=== PATIENT | female | born 1990 | race Two or more races ===

== ENCOUNTER → 2019-11-20 | Outpatient (CLI) | payer OTHER ==
--- NOTE | 2019-11-20 12:18 | RADIOLOGY REPORT (SQ) ---
EXAM DESCRIPTION: NM HIDA SCAN WITH CCK IMAGES COMPLETED DATE/TIME: 11/20/2019 10:31 am REASON FOR STUDY: K29.50 UNSPECIFIED CHRONIC GASTRITIS WITHOUT BLEEDING K29.50 UNSPECIFIED CHRONIC GASTRITIS WITHOUT BLEEDING COMPARISON: None. RADIONUCLIDE AND DOSE: DOSAGE RADIONUCLIDE: 5 millicuries Tc99m Mebrofenin. DOSAGE CCK: 2 micrograms. DOSAGE MORPHINE: Not required. The route of agent administration: Intravenous TECHNIQUE: Serial imaging right upper quadrant up to 60 minutes following injection of radionuclide. CCK injected after gallbladder visualized. LIMITATIONS: None. FINDINGS: LIVER: Normal visualization without areas of photopenia. INTRAHEPATIC BILE DUCTS: Normal size and no delay in visualization. COMMON BILE DUCT: Normal without dilatation. GALLBLADDER: Normal visualization. Calculated ejection fraction of 18%. Normal range is greater th an 35%. PHYSICAL RESPONSE: Patients presenting complaint was reproduced. OTHER: No other significant finding. IMPRESSION: Abnormal gallbladder ejection fraction of 18%. Patient's symptoms were reproduced with CCK administration. TECHNICAL DOCUMENTATION: JOB ID: [id number] 2010 [employer]- All Rights Reserved Reading location - IP/workstation name: [email or web address]
== END ==
LOC: RAD 07:21
PROVIDERS: ATTEND Internal Medicine Gastroenterology
DX: K29.50 Unspecified chronic gastritis without bleeding (principal)
CPT/HCPCS: 81025; 78227; J2805; A9537; Q9969

== ENCOUNTER 2019-11-23 08:21 | Emergency (ER) | payer OTHER ==
[2019-11-23 09:22] LABS: ABSOLUTE EOSINOPHILS # (AUTO) 0.1 10^3/uL (0.0-0.6); ABSOLUTE LYMPHOCYTES (AUTO) 2.4 10^3/uL (0.5-4.7); ABSOLUTE MONOCYTES (AUTO) 0.4 10^3/uL (0.1-1.4); ABSOLUTE NEUT (AUTO) 3.6 10^3/uL (1.7-8.2); BASOPHILS % (AUTO) 0.5 % (0-2); EOSINOPHILS % (AUTO) 0.8 % (0-6); HEMATOCRIT 41.2 % (36.0-47.0); LYMPHOCYTES % (AUTO) 36.3 % (13-45); MEAN CORPUSCULAR HEMOGLOBIN 28.6 pg (27.0-33.4); MEAN CORPUSCULAR VOLUME 84 fl (80-97); MONOCYTES % (AUTO) 6.9 % (3-13); PLATELET COUNT 209 10^3/uL (150-450); RED BLOOD COUNT 4.91 10^6/uL (3.72-5.28); RED CELL DISTRIBUTION WIDTH 13.7 % (11.5-14.0); SEGMENTED NEUTROPHILS % (AUTO) 55.5 % (42-78); TOTAL CELLS COUNTED % (AUTO) 100 %; WHITE BLOOD COUNT 6.5 10^3/uL (4.0-10.5)
[2019-11-23 09:27] LABS: APPEARANCE,URINE SLIGHTLY-CLOUDY; BILIRUBIN,URINE NEGATIVE (NEGATIVE); COLOR,URINE STRAW; GLUCOSE, URINE NEGATIVE (NEGATIVE); KETONES,URINE NEGATIVE (NEGATIVE); LEUKOCYTE ESTERASE,URINE LARGE (NEGATIVE); NITRITE,URINE NEGATIVE (NEGATIVE); PROTEIN,URINE NEGATIVE (NEGATIVE); URINE SPECIFIC GRAVITY 1.001; UROBILINOGEN,URINE NEGATIVE mg/dL (<2.0)
[2019-11-23 09:42] LABS: ALBUMIN 4.8 g/dL (3.5-5.0); ALKALINE PHOSPHATASE 73 U/L (38-126); ANION GAP 10 (5-19); ASPARTATE AMINO TRANSFERASE 20 U/L (14-36); BILIRUBIN,DIRECT 0.3 mg/dL (0.0-0.4); BILIRUBIN,TOTAL 0.5 mg/dL (0.2-1.3); BLOOD UREA NITROGEN 10 mg/dL (7-20); CALCIUM 9.6 mg/dL (8.4-10.2); CARBON DIOXIDE 29 mmol/L (22-30); CHLORIDE 103 mmol/L (98-107); GLUCOSE 112 mg/dL (75-110); POTASSIUM 3.7 mmol/L (3.6-5.0); TOTAL PROTEIN 7.9 g/dL (6.3-8.2)
[2019-11-23] MEDS ORDERED: NORMAL SALINE 1000 ML 1,000 ML IV ONE (13:19)
[2019-11-23] MEDS ORDERED: ONDANSETRON HCL INJ/PF 4 MG/2 ML SDV IV ONE (13:19)
[2019-11-23] MEDS ORDERED: MORPHINE SULFATE 10 MG/ML INJ IV ONE (13:19)
--- NOTE | 2019-11-23 14:57 | RADIOLOGY REPORT (SQ) ---
EXAM DESCRIPTION: CT ABD/PELVIS WITH IV ONLY IMAGES COMPLETED DATE/TIME: 11/23/2019 2:22 pm REASON FOR STUDY: right flank pain/urinary frequency/burning/hematuria COMPARISON: None. TECHNIQUE: CT scan of the abdomen and pelvis performed using helical scanning technique with dynamic intravenous contrast injection. No oral contrast. Images reviewed with lung, soft tissue, and bone windows. Reconstructed coronal and sagittal MPR images reviewed. Delayed images for evaluation of the urinary system also acquired. All images stored on PACS. All CT scanners at this facility use dose modulation, iterative reconstruction, and/or weight based d osing when appropriate to reduce radiation dose to as low as reasonably achievable (ALARA). [facility]: Dose Right [facility]: CareDose [facility]: Dose Right [facility]: Teradose 4D [facility]: TapTap CONTRAST TYPE AND DOSE: contrast/concentration: Isovue 350.00 mmol/ml; Total Contrast Delivered: 100 .0 ml; Total Saline Delivered: 71.9 ml RENAL FUNCTION: BUN 10 creatinine 0.65 RADIATION DOSE: CT Rad equipment meets quality standard of care and radiation dose reduction techniq ues were employed. CTDIvol: 15.0 - 19.4 mGy. DLP: 2106 mGy-cm.. LIMITATIONS: None. FINDINGS: LOWER CHEST: No significant findings. No nodules or infiltrates. LIVER: Normal size. No masses. No dilated ducts. SPLEEN: Normal size. No focal lesions. PANCREAS: No masses. No significant calcifications. No adjacent inflammation or peripancreatic fluid collections. Pancreatic duct not dilated. GALLBLADDER: No identified stones by CT criteria. No inflammatory changes to suggest cholecystitis. ADRENAL GLANDS: No significant masses or asymmetry. RIGHT KIDNEY AND URETER: No solid masses. No significant calcifications. No hydronephrosis or hyd roureter. LEFT KIDNEY AND URETER: No solid masses. No significant calcifications. No hydronephrosis or hydr oureter. AORTA AND VESSELS: No aneurysm. No dissection. Renal arteries, SMA, celiac without stenosis. RETROPERITONEUM: No retroperitoneal adenopathy, hemorrhage or masses. BOWEL AND PERITONEAL CAVITY: No masses or inflammatory changes. No free fluid or peritoneal masses. APPENDIX: Surgically absent. PELVIS: There is a 27 mm fat density lesion in the left adnexa. There is an associated calcification . ABDOMINAL WALL: No masses. No hernias. BONES: No significant or acute findings. OTHER: No other significant finding. IMPRESSION: 1. There is mild right hydroureter. No obstructing calculus is seen. The appearance m ay be secondary to ureteral peristalsis. The ureter is of normal caliber in the pelvis. 2. There is a 27 mm left ovarian dermoid. TECHNICAL DOCUMENTATION: JOB ID: [id number] Quality ID # [id number]: Final reports with documentation of one or more dose reduction techniques (e.g., Au tomated exposure control, adjustment of the mA and/or kV according to patient size, use of iterative reconstruction technique) 2010 [employer]- All Rights Reserved Reading location - IP/workstation name: [email or web address]
--- NOTE | 2019-11-23 16:49 | ER Document Report ---
Entered by MARCO AU SCRIBE 11/23/19 1158 Acting as scribe for:WANDA ZAPATA MD ED GI/ - General Chief Complaint: Flank Pain Stated Complaint: RIGHT FLANK PAIN Primary Care Provider: YAMILETH BOWEN MD [Primary Care Provider] - Follow up as needed Information source: Patient Notes: This 29 year old female patient presents to the emergency department today with right flank pain for the past x2-3 weeks. Patient states the pain does not radiate. Patient states her bowel movement and appetite are normal. Patient also reports pain in the right side of her back. Patient reports medical history of chronic gastritis. Patient states she had a hepatobiliary scan done x3 days ago and does not know what the results were, but has an appointment in x3 days. - Related Data Allergies/Adverse Reactions: peanut Allergy (Verified 11/23/19 08:40) Past Medical History - General Information source: Patient - Social History Smoking Status: Never Smoker Cigarette use (# per day): No Family History: Reviewed & Not Pertinent GI Medical History: Reports: Hx Gastritis Past Surgical History: Reports: Other - cyst removal Review of Systems - Review of Systems Constitutional: No symptoms reported EENT: No symptoms reported Cardiovascular: No symptoms reported Respiratory: No symptoms reported Gastrointestinal: See HPI, Other - normal bowel movement. denies: Poor appetite Genitourinary: See HPI, Flank pain - R Female Genitourinary: No symptoms reported Musculoskeletal: See HPI, Back pain - R Skin: No symptoms reported Hematologic/Lymphatic: No symptoms reported Neurological/Psychological: No symptoms reported -: Yes All other systems reviewed and negative Physical Exam - Vital signs Vitals: Temp Pulse Resp BP Pulse Ox 97.6 F 89 16 138/86 H 100 11/23/19 08:26 11/23/19 08:26 11/23/19 08:26 11/23/19 08:26 11/23/19 08:26 - General General appearance: Appears well, Alert - HEENT Head: Normocephalic, Atraumatic Eyes: Normal Pupils: PERRL - Respiratory Respiratory status: No respiratory distress Chest status: Nontender Breath sounds: Normal Chest palpation: Normal - Cardiovascular Rhythm: Regular Heart sounds: Normal auscultation Murmur: No - Abdominal Inspection: Normal Distension: No distension Bowel sounds: Normal Notes: Tenderness with palpation to the right anterior flank. - Back Back: CVA tenderness - Right - Extremities General upper extremity: Normal inspection. No: Edema General lower extremity: Normal inspection. No: Edema - Neurological Neuro grossly intact: Yes Cognition: Normal Orientation: AAOx4 [place] Coma Scale Eye Opening: Spontaneous [place] Coma Scale Verbal: Oriented [place] Coma Scale Motor: Obeys Commands [place] Coma Scale Total: 15 Speech: Normal Sensory: Normal - Psychological Associated symptoms: Normal affect, Normal mood - Skin Skin Temperature: Warm Skin Moisture: Dry Skin Color: Normal Skin irregularity: negative: Rash Course - Re-evaluation Re-evalutation: 11/23/19 16:15 Multiple discussions and examination of patient with the translation josh Arriola at bedside. Patient complained of pain in her right flank and CVA on the right side with radiating down to the groin. Patient is also been followed by a black ash worker with recent HIDA scan 3 days ago. Patient's HIDA scan show a abnormality with an 18% ejection fraction. That information was shared with patient and and I have asked patient to keep her appointment with with [place] stro[facility]ologist on Tuesday. Regarding the CVA tenderness and flank pain that radiates to the groin patient had a CT abdomen of pelvis and pelvis with IV contrast. It disclosed that patient has a negative study except that there were some evidence of mild hydronephrosis and peristalsis waves all the way down to the pelvis bladder. No obstruction or stone was seen. - Vital Signs Vital signs: Temp Pulse Resp BP Pulse Ox 97.6 F 89 16 138/86 H 100 11/23/19 08:26 11/23/19 08:26 11/23/19 08:26 11/23/19 08:26 11/23/19 08:26 11/23/19 16:33 Vital signs stable. - Laboratory Result Diagrams: 11/23/19 09:03 11/23/19 09:03 Laboratory results interpreted by me: 11/23/19 11/23/19 09:00 09:03 Glucose 112 H Urine Blood SMALL H Ur Leukocyte Esterase LARGE H 11/23/19 16:31 Laboratory shows an small amount of blood noted in the urine along with a large leukocyte esterase. 11/23/19 16:33 Abdomen/Pelvis CT 11/23/19 12:23 IMPRESSION: 1. There is mild right hydroureter. No obstructing calculus is seen. The appearance may be secondary to ureteral peristalsis. The ureter is of normal caliber in the pelvis. 2. There is a 27 mm left ovarian dermoid. CT scanning of abdomen pelvis shows a mild right hydroureter but no obstructing calculus seen. 11/23/19 16:34 11/23/19 09:03 11/23/19 09:03 MCV 84 fl (80-97) 11/23/19 09:03 MCH 28.6 pg (27.0-33.4) 11/23/19 09:03 MCHC 34.0 g/dL (32.0-36.0) 11/23/19 09:03 RDW 13.7 % (11.5-14.0) 11/23/19 09:03 Seg Neutrophils % 55.5 % (42-78) 11/23/19 09:03 Chloride 103 mmol/L (98-107) 11/23/19 09:03 Carbon Dioxide 29 mmol/L (22-30) 11/23/19 09:03 Anion Gap 10 (5-19) 11/23/19 09:03 Est GFR ( Amer) > 60 (>60) 11/23/19 09:03 Glucose 112 mg/dL (75-110) H 11/23/19 09:03 Calcium 9.6 mg/dL (8.4-10.2) 11/23/19 09:03 Total Bilirubin 0.5 mg/dL (0.2-1.3) 11/23/19 09:03 AST 20 U/L (14-36) 11/23/19 09:03 Alkaline Phosphatase 73 U/L (38-126) 11/23/19 09:03 Total Protein 7.9 g/dL (6.3-8.2) 11/23/19 09:03 Albumin 4.8 g/dL (3.5-5.0) 11/23/19 09:03 Lipase 67.1 U/L (23-300) 11/23/19 09:03 Serum HCG, Qual NEGATIVE (NEGATIVE) 11/23/19 09:03 Urine Color STRAW 11/23/19 09:00 Urine Appearance SLIGHTLY-CLOUDY 11/23/19 09:00 Urine pH 6.0 (5.0-9.0) 11/23/19 09:00 Ur Specific [place] 1.001 11/23/19 09:00 Urine Protein NEGATIVE mg/dL (NEGATIVE) 11/23/19 09:00 Urine Glucose (UA) NEGATIVE mg/dL (NEGATIVE) 11/23/19 09:00 Urine Ketones NEGATIVE mg/dL (NEGATIVE) 11/23/19 09:00 Urine Blood SMALL (NEGATIVE) H 11/23/19 09:00 Urine Nitrite NEGATIVE (NEGATIVE) 11/23/19 09:00 Ur Leukocyte Esterase LARGE (NEGATIVE) H 11/23/19 09:00 Urine WBC (Auto) 13 /HPF 11/23/19 09:00 Urine RBC (Auto) 2 /HPF 11/23/19 09:00 Discharge - Discharge Clinical Impression: Abdominal pain, Hydroureter, right, Urinary tract infection symptoms, Abnormal biliary HIDA scan Condition: Stable Disposition: HOME, SELF-CARE Instructions: Oral Narcotic Medication ([facility]), Antinausea Medication ([facility]) Additional Instructions: Urinary Tract Infection Your evaluation indicates that you have a urinary tract infection. This is due to germs growing in the bladder. This is a common problem. This infection usually responds quickly to antibiotics. Your antibiotic should be taken exactly as prescribed. Drink plenty of fluids -- three to four quarts a day. Occasionally, a bladder anesthetic will be prescribed to help stop the feeling of urgency until the antibiotic has a chance to clear the infection. This may cause your urine to be dark orange. Certain urine infections require a culture. If the doctor obtained a culture, the results will be back in two days. You should call to see if a change in treatment is needed. A repeat urinalysis after you finish treatment is often recommended. The physician will let you know if further testing is required. Call the doctor if you develop fever, chills, flank pain, inability to urinate, or blood in the urine. You may have a urinary tract infection. However a urine culture has been sent to the lab. Inasmuch as you have noted evidence for markers on your urine analysis that may represent a urinary tract infection you also had flank pain which may represent that you were passing a stone as well. I requested that you follow-up with urologist for further follow-up. Today we will place you on pain medications and antibiotic coverage. Also you need to follow-up with your gastroenterology doctor regarding your abnormal HIDA scan which you have an appointment already on Tuesday Prescriptions: Ondansetron [Zofran Odt 4 mg Tablet] 1 - 2 tab PO Q4HP PRN #10 tab.rapdis PRN Reason: Nitrofurantoin Monohyd/M-Cryst [Macrobid 100 mg Capsule] 100 mg PO BID #20 cap Hydrocodone/Acetaminophen [[place] 5-325 Tablet] 1 tab PO QID PRN 8 Days #16 ta blet PRN Reason: prn severe pain Referrals: YAMILETH BOWEN MD [Primary Care Provider] - Follow up as needed DEMETRIO GAINES MD [NO LOCAL MD] - Follow up in 1 week (Urologist follow up re right Hydroureter) I personally performed the services described in the documentation, reviewed and edited the documentation which was dictated to the scribe in my presence, and it accurately records my words and actions.
[2019-11-23 18:11] VITALS: BP 126/80
== END 2019-11-23 18:11 | disposition home or self-care (01) ==
LOC: ER 08:21
DX: N13.4 Hydroureter (principal); D27.1 Benign neoplasm of left ovary; N13.30 Unspecified hydronephrosis; R10.9 Unspecified abdominal pain; R10.819 Abdominal tenderness, unspecified site; M54.9 Dorsalgia, unspecified; R31.9 Hematuria, unspecified; R93.2 Abnormal findings on diagnostic imaging of liver and biliary tract; Z87.19 Personal history of other diseases of the digestive system; Z91.010 Allergy to peanuts
CPT/HCPCS: 99285; 96361; 96374; 96375; 36415; 87086; 83690; 84703; 85025; 87088; 80053; 81001; 87186; 74177; J2270; J2405; J7030